=== PATIENT | female | born 1945 | race Caucasian/White ===

== ENCOUNTER 2020-10-14 04:36 | Inpatient (IN) ==
[2020-10-14] MEDS ORDERED: Dexamethasone 4 MG/ML VIAL IVP ONE (04:43)
[2020-10-14] MEDS ORDERED: Ipratropium/Albuterol Neb 3 ML IH ONE (04:43)
[2020-10-14] MEDS ORDERED: Azithromycin 500 MG in 0.9 % Sodium Chloride 250 ML IVPB ONE (04:46)
[2020-10-14] MEDS ORDERED: cefTRIAXone 1,000 MG in Water for inj. (sterile) 10 ML IVP ONE (04:46)
[2020-10-14 05:29] LABS: Basophils # 0.1 K/mcL (0.0-0.2); Basophils % 0.5 %; Eosinophils # 0.1 K/mcL (0.0-0.6); Eosinophils % 1.5 %; Hematocrit 38.2 % (35.3-44.9); Hemoglobin 11.7 g/dL (11.5-15.4); Immature Granulocytes % 0.5 % (0-4); Lymphocytes # 1.9 K/mcL (0.6-4.6); Lymphocytes % 20.5 %; Mean Corpuscular HGB Conc 30.6 g/dL (31.6-35.5); Mean Corpuscular Hemoglobin 30.5 pg (28.0-33.3); Mean Corpuscular Volume 99.7 fL (83.0-100.0); Mean Platelet Volume 8.7 fL (9.4-12.4); Monocytes # 0.8 K/mcL (0.0-1.3); Neutrophils # 6.5 K/mcL (1.6-8.9); Platelet Count 293 K/mcL (140-400); Prothrombin Time 11.3 Seconds (9.4-12.1); Red Blood Count 3.83 M/mcL (3.82-4.97); Red Cell Distribution Width 13.8 % (11.5-14.5); White Blood Count 9.4 K/mcL (4.3-11.1)
[2020-10-14 05:31] LABS: Activated Partial Thrombo Time 26.4 Seconds (26.0-36.0)
[2020-10-14 06:11] LABS: Alanine Aminotransferase 12 Units/L (7-52); Albumin 4.2 g/dL (3.5-5.7); Albumin/Globulin Ratio 1.5 (1.1-2.2); Alkaline Phosphatase 64 Units/L (34-104); Aspartate Amino Transferase 15 Units/L (13-39); BUN/Creatinine Ratio 38 (6-26); Bilirubin,Indirect 0.3 mg/dL (0.0-1.0); Bilirubin,Total 0.3 mg/dL (0.3-1.0); Blood Urea Nitrogen 18 mg/dL (8-23); Calcium 9.3 mg/dL (8.6-10.3); Carbon Dioxide 32 mEq/L (23-29); Chloride 101 mEq/L (98-107); Ferritin 36 ng/mL (10-120); Globulin 2.8 g/dL (2.4-3.5); Glucose 100 mg/dL (70-105); Lactate Dehydrogenase 131 Units/L (140-271); Magnesium 2.1 mg/dL (1.6-2.6); Osmolality,Calculated 294 (280-300); Phosphorous 4.2 mg/dL (2.7-4.5); Potassium 3.9 mEq/L (3.5-5.1); Sodium 141 mEq/L (136-145); Troponin I 0.05 ng/mL (< 0.04); eGFR For African Americans > 60 (> 60); eGFR For Non-African Americans > 60 (> 60)
[2020-10-14 06:14] LABS: Adenovirus Not Detected (Not Detect); Bordetella Pertussis Not Detected (Not Detect); Chlamydophila pneumoniae Not Detected (Not Detect); Coronavirus 229E Not Detected (Not Detect); Coronavirus HKU1 Not Detected (Not Detect); Coronavirus NL63 Not Detected (Not Detect); Coronavirus OC43 Not Detected (Not Detect); Human Metapneumovirus Not Detected (Not Detect); Human Rhinovirus/Enterovirus Not Detected (Not Detect); Influenza A Subtype 2009 H1 Not Detected (Not Detect); Influenza B Not Detected (Not Detect); Mycoplasma pneumoniae Not Detected (Not Detect); Parainfluenza Virus 1 Not Detected (Not Detect); Parainfluenza Virus 2 Not Detected (Not Detect); Parainfluenza Virus 3 Not Detected (Not Detect); Parainfluenza Virus 4 Not Detected (Not Detect); Respiratory Syncytial Virus Not Detected (Not Detect); SARS-CoV-2 Not Detected (Not Detect)
[2020-10-14] MEDS ORDERED: Naloxone 0.4 MG/ML INJ IVP PRN (06:57)
[2020-10-14 09:29] LABS: C-Reactive Protein 24 mg/L (Less than 10)
[2020-10-14] MEDS: methylPREDNISolone 125 MG/2 ML VIAL IVP SCH ×2 (09:45→15:21)
[2020-10-14] MEDS: Aspirin 81 MG TAB.CHEW PO SCH (09:45)
[2020-10-14] MEDS: Tiotropium 18 MCG inhalation IH SCH (11:28)
[2020-10-14] MEDS: Budesonide/Formoterol 160/4.5 1 PUFF INH IH SCH ×2 (11:28→21:53)
[2020-10-14] MEDS: *HR* Heparin 5,000 UNIT/ML VIAL SQ SCH (16:46)
[2020-10-14] MEDS: Ipratropium/Albuterol Neb 3 ML IH PRN (18:33)
[2020-10-15] MEDS: methylPREDNISolone 125 MG/2 ML VIAL IVP SCH ×3 (00:21→19:30)
[2020-10-15 04:26] LABS: Basophils % 0.2 %; Hematocrit 34.9 % (35.3-44.9); Hemoglobin 10.9 g/dL (11.5-15.4); Immature Granulocytes % 0.6 % (0-4); Lymphocytes # 0.7 K/mcL (0.6-4.6); Lymphocytes % 13.8 %; Mean Corpuscular HGB Conc 31.2 g/dL (31.6-35.5); Mean Corpuscular Hemoglobin 29.6 pg (28.0-33.3); Mean Corpuscular Volume 94.8 fL (83.0-100.0); Mean Platelet Volume 8.9 fL (9.4-12.4); Monocytes # 0.2 K/mcL (0.0-1.3); Neutrophils # 4.4 K/mcL (1.6-8.9); Platelet Count 282 K/mcL (140-400); Red Blood Count 3.68 M/mcL (3.82-4.97); Red Cell Distribution Width 13.5 % (11.5-14.5); Segmented Neutrophils % 82.4 %; White Blood Count 5.4 K/mcL (4.3-11.1)
[2020-10-15 04:40] LABS: BUN/Creatinine Ratio 67 (6-26); Blood Urea Nitrogen 31 mg/dL (8-23); Calcium 9.3 mg/dL (8.6-10.3); Carbon Dioxide 30 mEq/L (23-29); Chloride 102 mEq/L (98-107); Glucose 145 mg/dL (70-105); Osmolality,Calculated 297 (280-300); Potassium 4.3 mEq/L (3.5-5.1); Sodium 139 mEq/L (136-145); eGFR For African Americans > 60 (> 60); eGFR For Non-African Americans > 60 (> 60)
[2020-10-15] MEDS: *HR* Heparin 5,000 UNIT/ML VIAL SQ SCH ×2 (05:40→18:07)
[2020-10-15] MEDS: Budesonide/Formoterol 160/4.5 1 PUFF INH IH SCH ×2 (08:09→20:36)
[2020-10-15] MEDS: Tiotropium 18 MCG inhalation IH SCH ×2 (08:10→16:07)
[2020-10-15] MEDS: Ipratropium/Albuterol Neb 3 ML IH PRN ×2 (08:12→12:34)
[2020-10-15] MEDS: Aspirin 81 MG TAB.CHEW PO SCH (08:29)
[2020-10-15] MEDS ORDERED: ALPRAZolam 0.25 MG TABLET PO PRN (10:50)
[2020-10-15] MEDS: Albuterol 2.5 MG/3 ML NEBULIZER IH PRN (16:47)
[2020-10-16] MEDS: *HR* Heparin 5,000 UNIT/ML VIAL SQ SCH ×2 (05:52→16:49)
[2020-10-16] MEDS: Aspirin 81 MG TAB.CHEW PO SCH (07:26)
[2020-10-16] MEDS: methylPREDNISolone 125 MG/2 ML VIAL IVP SCH ×2 (07:27→19:53)
[2020-10-16 07:53] LABS: Basophils % 0.1 %; Hematocrit 36.2 % (35.3-44.9); Hemoglobin 11.1 g/dL (11.5-15.4); Immature Granulocytes % 0.5 % (0-4); Lymphocytes # 1.1 K/mcL (0.6-4.6); Lymphocytes % 13.5 %; Mean Corpuscular HGB Conc 30.7 g/dL (31.6-35.5); Mean Corpuscular Hemoglobin 29.5 pg (28.0-33.3); Mean Corpuscular Volume 96.3 fL (83.0-100.0); Mean Platelet Volume 9.3 fL (9.4-12.4); Monocytes # 0.6 K/mcL (0.0-1.3); Neutrophils # 6.2 K/mcL (1.6-8.9); Platelet Count 330 K/mcL (140-400); Red Blood Count 3.76 M/mcL (3.82-4.97); Red Cell Distribution Width 13.8 % (11.5-14.5); Segmented Neutrophils % 77.9 %
[2020-10-16 07:54] LABS: BUN/Creatinine Ratio 85 (6-26); Blood Urea Nitrogen 39 mg/dL (8-23); Calcium 9.4 mg/dL (8.6-10.3); Carbon Dioxide 33 mEq/L (23-29); Chloride 102 mEq/L (98-107); Glucose 117 mg/dL (70-105); Magnesium 2.1 mg/dL (1.6-2.6); Osmolality,Calculated 302 (280-300); Phosphorous 4.2 mg/dL (2.7-4.5); Potassium 4.1 mEq/L (3.5-5.1); Sodium 141 mEq/L (136-145); eGFR For African Americans > 60 (> 60); eGFR For Non-African Americans > 60 (> 60)
[2020-10-16] MEDS: Tiotropium 18 MCG inhalation IH SCH (08:41)
[2020-10-16] MEDS: Budesonide/Formoterol 160/4.5 1 PUFF INH IH SCH ×2 (08:42→22:13)
[2020-10-16] MEDS: Albuterol 2.5 MG/3 ML NEBULIZER IH PRN ×3 (11:10→19:50)
[2020-10-17] MEDS: *HR* Heparin 5,000 UNIT/ML VIAL SQ SCH (05:20)
[2020-10-17] MEDS: Tiotropium 18 MCG inhalation IH SCH (08:16)
[2020-10-17] MEDS: Budesonide/Formoterol 160/4.5 1 PUFF INH IH SCH (08:17)
[2020-10-17] MEDS: Aspirin 81 MG TAB.CHEW PO SCH (08:51)
[2020-10-17] MEDS ORDERED: predniSONE 20 MG TABLET PO SCH (09:00)
[2020-10-17 11:45] VITALS: BP 125/65
== END 2020-10-17 13:07 | disposition home health service (06) | DRG 190 ==
LOC: EMEROOARM 04:36 → 3BNU 04:36 → SUATTDRO 07:54 → 3BNU 08:46
PROVIDERS: ADMIT Internal Medicine; ATTEND Internal Medicine

== ENCOUNTER 2020-10-31 01:32 | Inpatient (IN) ==
[2020-10-31] MEDS ORDERED: Ipratropium/Albuterol Neb 3 ML IH ONE (01:35)
[2020-10-31 02:03] LABS: Basophils # 0.1 K/mcL (0.0-0.2); Basophils % 0.6 %; Eosinophils # 0.1 K/mcL (0.0-0.6); Eosinophils % 0.5 %; Hematocrit 36.4 % (35.3-44.9); Hemoglobin 10.9 g/dL (11.5-15.4); Immature Granulocytes % 0.6 % (0-4); Lymphocytes # 5.2 K/mcL (0.6-4.6); Lymphocytes % 31.2 %; Mean Corpuscular HGB Conc 29.9 g/dL (31.6-35.5); Mean Corpuscular Hemoglobin 29.8 pg (28.0-33.3); Mean Corpuscular Volume 99.5 fL (83.0-100.0); Mean Platelet Volume 8.7 fL (9.4-12.4); Monocytes # 1.2 K/mcL (0.0-1.3); Monocytes % 7.3 %; Platelet Count 312 K/mcL (140-400); Prothrombin Time 11.8 Seconds (9.4-12.1); Red Blood Count 3.66 M/mcL (3.82-4.97); Red Cell Distribution Width 13.8 % (11.5-14.5); Segmented Neutrophils % 59.8 %; White Blood Count 16.6 K/mcL (4.3-11.1)
[2020-10-31 02:06] LABS: Activated Partial Thrombo Time 24.9 Seconds (26.0-36.0)
[2020-10-31 02:20] LABS: BUN/Creatinine Ratio 36 (6-26); Blood Urea Nitrogen 20 mg/dL (8-23); Calcium 9.5 mg/dL (8.6-10.3); Carbon Dioxide 29 mEq/L (23-29); Chloride 100 mEq/L (98-107); Glucose 206 mg/dL (70-105); Osmolality,Calculated 297 (280-300); Potassium 4.2 mEq/L (3.5-5.1); Sodium 139 mEq/L (136-145); Troponin I < 0.03 ng/mL (< 0.04); eGFR For African Americans > 60 (> 60); eGFR For Non-African Americans > 60 (> 60)
[2020-10-31] MEDS ORDERED: Azithromycin 250 MG TABLET PO ONE (02:57)
[2020-10-31 03:07] LABS: Influenza A PCR Negative (Negative); Influenza B PCR Negative (Negative); Resp. Syncytial Virus PCR Negative (Negative)
[2020-10-31 03:08] LABS: SARS-CoV-2 by PCR (In House) Negative (Negative)
[2020-10-31] MEDS ORDERED: Azithromycin 500 MG in 0.9 % Sodium Chloride 250 ML IVPB ONE (03:37)
[2020-10-31] MEDS ORDERED: Ondansetron ODT 4 MG TAB.RAPDIS SL PRN (05:13)
[2020-10-31] MEDS ORDERED: Acetaminophen 325 MG TABLET PO PRN (05:13)
[2020-10-31] MEDS ORDERED: Naloxone 0.4 MG/ML INJ IVP PRN (05:13)
[2020-10-31] MEDS ORDERED: Dextrose Gel 15 GM/37.5 ML TUBE PO PRN ×2 (05:16)
[2020-10-31] MEDS ORDERED: D5% in Water 1,000 ML IVC PRN (05:16)
[2020-10-31] MEDS ORDERED: *HR* Dextrose 50 % in Water (Vial) 50 ML VIAL IVP PRN (05:16)
[2020-10-31] MEDS: Insulin LISPRO 300 UNITS/3 ML VIAL SUBQ SCH ×5 (06:49→21:38)
[2020-10-31] MEDS: 0.9 % Sodium Chloride 1,000 ML IVC SCH ×2 (07:17→20:03)
[2020-10-31 08:24] LABS: Estimated Average Glucose 146 mg/dl; Hemoglobin A1C 6.7 %
[2020-10-31] MEDS: *HR* Enoxaparin 30 MG/0.3 ML SYRINGE SQ SCH (08:24)
[2020-10-31] MEDS: methylPREDNISolone 125 MG/2 ML VIAL IVP SCH ×3 (08:24→23:53)
[2020-10-31] MEDS ORDERED: Budesonide/Formoterol 160/4.5 1 PUFF INH IH SCH (10:45)
[2020-10-31] MEDS: Aspirin 81 MG TAB.CHEW PO SCH (12:51)
[2020-10-31] MEDS: Tiotropium 10 INH DOSE IH SCH ×2 (15:29→19:51)
[2020-10-31] MEDS: Ipratropium/Albuterol Neb 3 ML IH SCH ×5 (15:30→23:06)
[2020-10-31] MEDS: Azithromycin 500 MG in 0.9 % Sodium Chloride 250 ML IVPB SCH (20:03)
[2020-10-31] MEDS: Budesonide/Formoterol 160/4.5 1 PUFF INH IH SCH ×2 (20:10→20:16)
[2020-11-01 03:49] LABS: Basophils % 0.2 %; Hematocrit 29.4 % (35.3-44.9); Immature Granulocytes % 0.4 % (0-4); Lymphocytes # 0.3 K/mcL (0.6-4.6); Lymphocytes % 6.3 %; Mean Corpuscular HGB Conc 30.6 g/dL (31.6-35.5); Mean Corpuscular Hemoglobin 30.3 pg (28.0-33.3); Monocytes # 0.2 K/mcL (0.0-1.3); Monocytes % 3.4 %; Neutrophils # 4.3 K/mcL (1.6-8.9); Platelet Count 246 K/mcL (140-400); Red Blood Count 2.97 M/mcL (3.82-4.97); Red Cell Distribution Width 13.6 % (11.5-14.5); Segmented Neutrophils % 89.7 %
[2020-11-01] MEDS: Ipratropium/Albuterol Neb 3 ML IH SCH ×4 (03:49→15:54)
[2020-11-01 03:50] LABS: White Blood Count 4.8 K/mcL (4.3-11.1)
[2020-11-01 04:07] LABS: BUN/Creatinine Ratio 85 (6-26); Blood Urea Nitrogen 29 mg/dL (8-23); Calcium 8.2 mg/dL (8.6-10.3); Carbon Dioxide 30 mEq/L (23-29); Chloride 105 mEq/L (98-107); Glucose 140 mg/dL (70-105); Magnesium 2.1 mg/dL (1.6-2.6); Osmolality,Calculated 298 (280-300); Phosphorous 2.5 mg/dL (2.7-4.5); Potassium 4.2 mEq/L (3.5-5.1); Sodium 140 mEq/L (136-145); eGFR For African Americans > 60 (> 60); eGFR For Non-African Americans > 60 (> 60)
[2020-11-01] MEDS: *HR* Enoxaparin 30 MG/0.3 ML SYRINGE SQ SCH (06:15)
[2020-11-01 08:08] LABS: % Iron Saturation 15 % (15-50); Iron 36 mcg/dL (50-170); Transferrin 169 mg/dL (203-362)
[2020-11-01 08:26] LABS: Ferritin 123 ng/mL (10-120)
[2020-11-01] MEDS: methylPREDNISolone 125 MG/2 ML VIAL IVP SCH (09:46)
[2020-11-01] MEDS: Aspirin 81 MG TAB.CHEW PO SCH (09:46)
[2020-11-01] MEDS: Insulin LISPRO 300 UNITS/3 ML VIAL SUBQ SCH ×4 (09:47→20:35)
[2020-11-01] MEDS: Budesonide/Formoterol 160/4.5 1 PUFF INH IH SCH ×2 (10:17→20:42)
[2020-11-01] MEDS: Tiotropium 10 INH DOSE IH SCH (10:18)
[2020-11-01] MEDS: Azithromycin 500 MG in 0.9 % Sodium Chloride 250 ML IVPB SCH (17:10)
[2020-11-01] MEDS: Albuterol 2.5 MG/3 ML NEBULIZER IH SCH (20:42)
[2020-11-02] MEDS: Albuterol 2.5 MG/3 ML NEBULIZER IH SCH ×7 (00:02→23:52)
[2020-11-02 05:05] LABS: Basophils % 0.1 %; Eosinophils % 0.1 %; Hematocrit 29.4 % (35.3-44.9); Hemoglobin 9.2 g/dL (11.5-15.4); Immature Granulocytes % 0.4 % (0-4); Lymphocytes # 1.3 K/mcL (0.6-4.6); Lymphocytes % 19.2 %; Mean Corpuscular HGB Conc 31.3 g/dL (31.6-35.5); Mean Platelet Volume 8.6 fL (9.4-12.4); Monocytes # 0.7 K/mcL (0.0-1.3); Monocytes % 9.5 %; Neutrophils # 4.8 K/mcL (1.6-8.9); Platelet Count 263 K/mcL (140-400); Red Blood Count 2.97 M/mcL (3.82-4.97); Red Cell Distribution Width 13.7 % (11.5-14.5); Segmented Neutrophils % 70.7 %; White Blood Count 6.9 K/mcL (4.3-11.1)
[2020-11-02 05:21] LABS: BUN/Creatinine Ratio 69 (6-26); Blood Urea Nitrogen 27 mg/dL (8-23); Calcium 8.4 mg/dL (8.6-10.3); Carbon Dioxide 32 mEq/L (23-29); Chloride 106 mEq/L (98-107); Glucose 95 mg/dL (70-105); Osmolality,Calculated 301 (280-300); Potassium 3.6 mEq/L (3.5-5.1); Sodium 143 mEq/L (136-145); eGFR For African Americans > 60 (> 60); eGFR For Non-African Americans > 60 (> 60)
[2020-11-02] MEDS: Insulin LISPRO 300 UNITS/3 ML VIAL SUBQ SCH ×4 (07:34→20:07)
[2020-11-02] MEDS: Aspirin 81 MG TAB.CHEW PO SCH (07:34)
[2020-11-02] MEDS: predniSONE 20 MG TABLET PO SCH (07:34)
[2020-11-02] MEDS: Budesonide/Formoterol 160/4.5 1 PUFF INH IH SCH ×2 (08:35→19:54)
[2020-11-02] MEDS: Tiotropium 10 INH DOSE IH SCH (08:35)
[2020-11-02] MEDS: Azithromycin 500 MG in 0.9 % Sodium Chloride 250 ML IVPB SCH (16:49)
[2020-11-03] MEDS: Albuterol 2.5 MG/3 ML NEBULIZER IH SCH ×6 (03:27→23:25)
[2020-11-03 05:42] LABS: Basophils % 0.2 %; Eosinophils # 0.1 K/mcL (0.0-0.6); Eosinophils % 0.8 %; Hematocrit 32.2 % (35.3-44.9); Hemoglobin 9.9 g/dL (11.5-15.4); Immature Granulocytes % 0.5 % (0-4); Lymphocytes # 1.9 K/mcL (0.6-4.6); Lymphocytes % 30.6 %; Mean Corpuscular HGB Conc 30.7 g/dL (31.6-35.5); Mean Corpuscular Hemoglobin 30.6 pg (28.0-33.3); Mean Corpuscular Volume 99.4 fL (83.0-100.0); Mean Platelet Volume 8.8 fL (9.4-12.4); Monocytes # 0.6 K/mcL (0.0-1.3); Neutrophils # 3.6 K/mcL (1.6-8.9); Platelet Count 294 K/mcL (140-400); Red Blood Count 3.24 M/mcL (3.82-4.97); Red Cell Distribution Width 13.7 % (11.5-14.5); Segmented Neutrophils % 58.9 %; White Blood Count 6.1 K/mcL (4.3-11.1)
[2020-11-03 06:03] LABS: BUN/Creatinine Ratio 36 (6-26); Blood Urea Nitrogen 14 mg/dL (8-23); Calcium 8.6 mg/dL (8.6-10.3); Carbon Dioxide 35 mEq/L (23-29); Chloride 102 mEq/L (98-107); Glucose 83 mg/dL (70-105); Osmolality,Calculated 292 (280-300); Potassium 3.6 mEq/L (3.5-5.1); Sodium 141 mEq/L (136-145); eGFR For African Americans > 60 (> 60); eGFR For Non-African Americans > 60 (> 60)
[2020-11-03] MEDS: Aspirin 81 MG TAB.CHEW PO SCH (08:09)
[2020-11-03] MEDS: predniSONE 20 MG TABLET PO SCH (08:09)
[2020-11-03] MEDS: Insulin LISPRO 300 UNITS/3 ML VIAL SUBQ SCH ×4 (08:10→19:11)
[2020-11-03] MEDS: Tiotropium 10 INH DOSE IH SCH (09:33)
[2020-11-03] MEDS: Budesonide/Formoterol 160/4.5 1 PUFF INH IH SCH ×2 (09:35→20:09)
[2020-11-03] MEDS: Azithromycin 500 MG in 0.9 % Sodium Chloride 250 ML IVPB SCH (16:47)
[2020-11-04] MEDS: Albuterol 2.5 MG/3 ML NEBULIZER IH SCH ×6 (03:56→23:01)
[2020-11-04 04:56] LABS: Basophils % 0.1 %; Eosinophils # 0.1 K/mcL (0.0-0.6); Eosinophils % 1.2 %; Hematocrit 33.3 % (35.3-44.9); Hemoglobin 10.3 g/dL (11.5-15.4); Immature Granulocytes % 0.6 % (0-4); Lymphocytes % 28.7 %; Mean Corpuscular HGB Conc 30.9 g/dL (31.6-35.5); Mean Corpuscular Hemoglobin 29.5 pg (28.0-33.3); Mean Corpuscular Volume 95.4 fL (83.0-100.0); Mean Platelet Volume 8.4 fL (9.4-12.4); Monocytes # 0.6 K/mcL (0.0-1.3); Monocytes % 8.5 %; Neutrophils # 4.1 K/mcL (1.6-8.9); Platelet Count 309 K/mcL (140-400); Red Blood Count 3.49 M/mcL (3.82-4.97); Red Cell Distribution Width 13.5 % (11.5-14.5); Segmented Neutrophils % 60.9 %; White Blood Count 6.8 K/mcL (4.3-11.1)
[2020-11-04 05:14] LABS: BUN/Creatinine Ratio 41 (6-26); Blood Urea Nitrogen 15 mg/dL (8-23); Calcium 8.6 mg/dL (8.6-10.3); Carbon Dioxide 36 mEq/L (23-29); Chloride 102 mEq/L (98-107); Glucose 88 mg/dL (70-105); Osmolality,Calculated 292 (280-300); Potassium 3.7 mEq/L (3.5-5.1); Sodium 141 mEq/L (136-145); eGFR For African Americans > 60 (> 60); eGFR For Non-African Americans > 60 (> 60)
[2020-11-04] MEDS: Budesonide/Formoterol 160/4.5 1 PUFF INH IH SCH ×2 (08:33→19:43)
[2020-11-04] MEDS: Insulin LISPRO 300 UNITS/3 ML VIAL SUBQ SCH ×4 (08:34→20:42)
[2020-11-04] MEDS: Tiotropium 10 INH DOSE IH SCH (08:34)
[2020-11-04] MEDS: Aspirin 81 MG TAB.CHEW PO SCH (08:53)
[2020-11-04] MEDS: predniSONE 20 MG TABLET PO SCH (08:53)
[2020-11-04] MEDS: Azithromycin 500 MG in 0.9 % Sodium Chloride 250 ML IVPB SCH (18:12)
[2020-11-05] MEDS: Albuterol 2.5 MG/3 ML NEBULIZER IH SCH ×6 (03:21→23:58)
[2020-11-05 06:09] LABS: Basophils % 0.1 %; Eosinophils # 0.1 K/mcL (0.0-0.6); Hemoglobin 9.9 g/dL (11.5-15.4); Immature Granulocytes % 0.9 % (0-4); Lymphocytes % 29.2 %; Mean Corpuscular HGB Conc 30.9 g/dL (31.6-35.5); Mean Corpuscular Hemoglobin 29.7 pg (28.0-33.3); Mean Corpuscular Volume 96.1 fL (83.0-100.0); Mean Platelet Volume 8.9 fL (9.4-12.4); Monocytes # 0.6 K/mcL (0.0-1.3); Neutrophils # 4.2 K/mcL (1.6-8.9); Platelet Count 338 K/mcL (140-400); Red Blood Count 3.33 M/mcL (3.82-4.97); Red Cell Distribution Width 13.6 % (11.5-14.5); Segmented Neutrophils % 60.8 %
[2020-11-05 06:29] LABS: BUN/Creatinine Ratio 51 (6-26); Blood Urea Nitrogen 23 mg/dL (8-23); Carbon Dioxide 34 mEq/L (23-29); Chloride 99 mEq/L (98-107); Glucose 87 mg/dL (70-105); Osmolality,Calculated 291 (280-300); Potassium 3.8 mEq/L (3.5-5.1); Sodium 139 mEq/L (136-145); eGFR For African Americans > 60 (> 60); eGFR For Non-African Americans > 60 (> 60)
[2020-11-05] MEDS: Budesonide/Formoterol 160/4.5 1 PUFF INH IH SCH ×2 (08:11→20:06)
[2020-11-05] MEDS: Tiotropium 10 INH DOSE IH SCH (08:14)
[2020-11-05] MEDS: predniSONE 20 MG TABLET PO SCH (08:39)
[2020-11-05] MEDS: Aspirin 81 MG TAB.CHEW PO SCH (08:39)
[2020-11-05] MEDS: Insulin LISPRO 300 UNITS/3 ML VIAL SUBQ SCH ×3 (08:45→16:10)
[2020-11-05] MEDS: Azithromycin 500 MG in 0.9 % Sodium Chloride 250 ML IVPB SCH (17:40)
[2020-11-06] MEDS: Albuterol 2.5 MG/3 ML NEBULIZER IH SCH ×3 (04:05→11:10)
[2020-11-06 06:12] LABS: Basophils % 0.3 %; Eosinophils # 0.1 K/mcL (0.0-0.6); Eosinophils % 1.3 %; Hematocrit 33.9 % (35.3-44.9); Hemoglobin 10.4 g/dL (11.5-15.4); Immature Granulocytes % 1.3 % (0-4); Lymphocytes # 2.3 K/mcL (0.6-4.6); Lymphocytes % 29.5 %; Mean Corpuscular HGB Conc 30.7 g/dL (31.6-35.5); Mean Corpuscular Hemoglobin 30.1 pg (28.0-33.3); Mean Platelet Volume 8.6 fL (9.4-12.4); Monocytes # 0.6 K/mcL (0.0-1.3); Monocytes % 7.2 %; Neutrophils # 4.7 K/mcL (1.6-8.9); Platelet Count 381 K/mcL (140-400); Red Blood Count 3.46 M/mcL (3.82-4.97); Segmented Neutrophils % 60.4 %; White Blood Count 7.7 K/mcL (4.3-11.1)
[2020-11-06 06:34] LABS: BUN/Creatinine Ratio 45 (6-26); Blood Urea Nitrogen 19 mg/dL (8-23); Calcium 8.9 mg/dL (8.6-10.3); Carbon Dioxide 36 mEq/L (23-29); Chloride 100 mEq/L (98-107); Glucose 90 mg/dL (70-105); Osmolality,Calculated 294 (280-300); Potassium 3.8 mEq/L (3.5-5.1); Sodium 141 mEq/L (136-145); eGFR For African Americans > 60 (> 60); eGFR For Non-African Americans > 60 (> 60)
[2020-11-06] MEDS: Insulin LISPRO 300 UNITS/3 ML VIAL SUBQ SCH ×2 (07:11→08:23)
[2020-11-06 07:22] VITALS: BP 100/62
[2020-11-06] MEDS: Budesonide/Formoterol 160/4.5 1 PUFF INH IH SCH (08:08)
[2020-11-06] MEDS: Tiotropium 10 INH DOSE IH SCH (08:08)
[2020-11-06] MEDS: Aspirin 81 MG TAB.CHEW PO SCH (08:25)
[2020-11-06] MEDS: predniSONE 20 MG TABLET PO SCH (08:26)
== END 2020-11-06 14:12 | disposition home health service (06) | DRG 871 ==
LOC: CDU 01:32 → EMEROOARM 01:32 → CDU 06:57 → 3BNU 19:05
PROVIDERS: ADMIT Internal Medicine; ATTEND Internal Medicine

== ENCOUNTER 2021-03-02 12:03 | Inpatient (IN) ==
[2021-03-02 12:36] LABS: Basophils # 0.1 K/mcL (0.0-0.2); Basophils % 0.6 %; Eosinophils % 0.3 %; Hematocrit 37.4 % (35.3-44.9); Hemoglobin 11.7 g/dL (11.5-15.4); Lymphocytes # 1.1 K/mcL (0.6-4.6); Lymphocytes % 8.2 %; Mean Corpuscular HGB Conc 31.3 g/dL (31.6-35.5); Mean Corpuscular Hemoglobin 30.2 pg (28.0-33.3); Mean Corpuscular Volume 96.4 fL (83.0-100.0); Mean Platelet Volume 8.3 fL (9.4-12.4); Monocytes # 0.4 K/mcL (0.0-1.3); Monocytes % 3.1 %; Neutrophils # 11.7 K/mcL (1.6-8.9); Platelet Count 346 K/mcL (140-400); Red Blood Count 3.88 M/mcL (3.82-4.97); Red Cell Distribution Width 13.4 % (11.5-14.5); Segmented Neutrophils % 86.8 %; White Blood Count 13.5 K/mcL (4.3-11.1)
[2021-03-02 12:58] LABS: BUN/Creatinine Ratio 55 (6-26); Blood Urea Nitrogen 27 mg/dL (8-23); Calcium 9.2 mg/dL (8.6-10.3); Carbon Dioxide 28 mEq/L (23-29); Chloride 99 mEq/L (98-107); Glucose 120 mg/dL (70-105); Osmolality,Calculated 290 (280-300); Sodium 137 mEq/L (136-145); eGFR For African Americans > 60 (> 60); eGFR For Non-African Americans > 60 (> 60)
[2021-03-02 12:59] LABS: Troponin I 0.03 ng/mL (< 0.04)
[2021-03-02 13:44] LABS: Adenovirus Not Detected (Not Detect); Bordetella Pertussis Not Detected (Not Detect); Chlamydophila pneumoniae Not Detected (Not Detect); Coronavirus 229E Not Detected (Not Detect); Coronavirus HKU1 Not Detected (Not Detect); Coronavirus NL63 Not Detected (Not Detect); Coronavirus OC43 Not Detected (Not Detect); Human Metapneumovirus Not Detected (Not Detect); Human Rhinovirus/Enterovirus Not Detected (Not Detect); Influenza A Subtype 2009 H1 Not Detected (Not Detect); Influenza B Not Detected (Not Detect); Mycoplasma pneumoniae Not Detected (Not Detect); Parainfluenza Virus 1 Not Detected (Not Detect); Parainfluenza Virus 2 Not Detected (Not Detect); Parainfluenza Virus 3 Not Detected (Not Detect); Parainfluenza Virus 4 Not Detected (Not Detect); Respiratory Syncytial Virus Not Detected (Not Detect); SARS-CoV-2 Not Detected (Not Detect)
[2021-03-02] MEDS ORDERED: Ipratropium/Albuterol Neb 3 ML IH ONE (13:45)
[2021-03-02] MEDS ORDERED: Isovue-370 500 ML BOTTLE IVP ONE (13:47)
[2021-03-02 14:48] LABS: Bilirubin,Urine Negative (Negative); Blood,Urine Small (Negative); Clarity,Urine Clear (Clear); Color,Urine Colorless (Yellow); Glucose,Urine (UA) Normal (Normal); Ketones,Urine Trace mg/dL (Negative); Leukocyte Esterase,Urine Negative (Negative); Nitrite,Urine Negative (Negative); Protein,Urine Negative (Neg-Trace); Specific Gravity,Urine 1.024 (1.010-1.025); Urobilinogen,Urine Normal (Normal); WBC,Urine 0-3 per hpf (0-3)
[2021-03-02] MEDS ORDERED: Azithromycin 500 MG in 0.9 % Sodium Chloride 250 ML IVPB ONE (16:08)
[2021-03-02] MEDS ORDERED: cefTRIAXone 1,000 MG in Water for inj. (sterile) 10 ML IVP ONE (16:08)
[2021-03-02] MEDS ORDERED: Ringers Solution, Lactated 1,000 ML IVC ONE (16:56)
[2021-03-02] MEDS ORDERED: Levalbuterol Neb 0.63 MG/3 ML IH PRN (16:58)
[2021-03-02] MEDS ORDERED: Naloxone 0.4 MG/ML INJ IVP PRN (16:59)
[2021-03-02] MEDS ORDERED: Acetaminophen 325 MG TABLET PO PRN (16:59)
[2021-03-02] MEDS ORDERED: Melatonin 3 MG TABLET PO PRN (16:59)
[2021-03-02] MEDS ORDERED: Ringers Solution, Lactated 1,000 ML IVC SCH (18:00)
[2021-03-02] MEDS: Piperacillin/Tazobactam 3.375 GM in 0.9 % Sodium Chloride Mini Bag 100 ML IVPB SCH (18:41)
[2021-03-02] MEDS: Ondansetron 4 MG/2 ML VIAL IVP PRN (18:41)
[2021-03-02] MEDS: predniSONE 20 MG TABLET PO SCH (18:41)
[2021-03-02] MEDS ORDERED: 0.9 % Sodium Chloride 1,000 ML IV ONE (18:59)
[2021-03-02] MEDS: Levalbuterol Neb 0.63 MG/3 ML IH SCH (22:06)
[2021-03-02] MEDS: Budesonide/Formoterol 160/4.5 1 PUFF INH IH SCH (22:35)
[2021-03-02] MEDS: 0.9 % Sodium Chloride 1,000 ML IVC SCH (22:41)
[2021-03-03] MEDS: Piperacillin/Tazobactam 3.375 GM in 0.9 % Sodium Chloride Mini Bag 100 ML IVPB SCH ×3 (01:23→21:10)
[2021-03-03] MEDS: Levalbuterol Neb 0.63 MG/3 ML IH SCH ×4 (04:08→22:29)
[2021-03-03 05:39] LABS: Basophils % 0.1 %; Hematocrit 35.9 % (35.3-44.9); Hemoglobin 11.2 g/dL (11.5-15.4); Immature Granulocytes % 1.2 % (0-4); Lymphocytes % 12.5 %; Mean Corpuscular HGB Conc 31.2 g/dL (31.6-35.5); Mean Corpuscular Hemoglobin 30.7 pg (28.0-33.3); Mean Corpuscular Volume 98.4 fL (83.0-100.0); Mean Platelet Volume 8.2 fL (9.4-12.4); Monocytes # 0.2 K/mcL (0.0-1.3); Monocytes % 2.3 %; Neutrophils # 6.5 K/mcL (1.6-8.9); Platelet Count 319 K/mcL (140-400); Red Blood Count 3.65 M/mcL (3.82-4.97); Red Cell Distribution Width 13.3 % (11.5-14.5); Segmented Neutrophils % 83.9 %; White Blood Count 7.8 K/mcL (4.3-11.1)
[2021-03-03 05:48] LABS: Prothrombin Time 11.3 Seconds (9.4-12.1)
[2021-03-03 06:03] LABS: BUN/Creatinine Ratio 42 (6-26); Blood Urea Nitrogen 20 mg/dL (8-23); Calcium 8.8 mg/dL (8.6-10.3); Carbon Dioxide 31 mEq/L (23-29); Chloride 102 mEq/L (98-107); Glucose 147 mg/dL (70-105); Magnesium 2.1 mg/dL (1.6-2.6); Osmolality,Calculated 293 (280-300); Phosphorous 3.5 mg/dL (2.7-4.5); Potassium 4.5 mEq/L (3.5-5.1); Sodium 139 mEq/L (136-145); eGFR For African Americans > 60 (> 60); eGFR For Non-African Americans > 60 (> 60)
[2021-03-03 06:17] LABS: Thyroid Stimulating Hormone 0.248 mcIU/mL (0.340-5.600)
[2021-03-03 08:53] LABS: Triiodothyronine (T3) Free 3.17 pg/mL (2.50-3.90)
[2021-03-03] MEDS: predniSONE 20 MG TABLET PO SCH (10:14)
[2021-03-03] MEDS: Aspirin 81 MG TAB.CHEW PO SCH (10:14)
[2021-03-03] MEDS ORDERED: *HR* LORazepam 2 MG/ML VIAL IVP PRN (10:31)
[2021-03-03] MEDS: Tiotropium 10 INH DOSE IH SCH (10:40)
[2021-03-03] MEDS: Budesonide/Formoterol 160/4.5 1 PUFF INH IH SCH ×2 (10:40→22:29)
[2021-03-03] MEDS ORDERED: Albuterol 2.5 MG/3 ML NEBULIZER IH PRN (12:31)
[2021-03-03] MEDS ORDERED: *HR* Propofol 200 MG/20 ML VIAL IVP ONE (12:32)
[2021-03-03] MEDS ORDERED: *HR* FentaNYL (PF) 100 MCG/2 ML VIAL ONE (12:32)
[2021-03-03] MEDS ORDERED: Lidocaine -MPF 2% 2 ML VIAL ONE (12:47)
[2021-03-03] MEDS ORDERED: *HR* Succinylcholine 200 MG/10 ML VIAL IVP ONE (12:47)
[2021-03-03] MEDS ORDERED: Ondansetron 4 MG/2 ML VIAL ONE (12:47)
[2021-03-03] MEDS ORDERED: *HR* EPINEPHrine 1 MG/10 ML SYRINGE INTRATRACH PRN (13:10)
[2021-03-03] MEDS ORDERED: *HR* EPINEPHrine 1 MG/10 ML SYRINGE ONE (14:10)
[2021-03-03] MEDS: 0.9 % Sodium Chloride 1,000 ML IVC SCH (14:20)
[2021-03-03 16:09] LABS: Appearance of Body Fluid Slightly Hazy (Clear); Source of Body Fluid RIGHT UPPER LOBE LUN; Volume of Body Fluid 21 mL
[2021-03-03] MEDS: Azithromycin 500 MG in 0.9 % Sodium Chloride 250 ML IVPB SCH (17:27)
[2021-03-03] MEDS: Ondansetron 4 MG/2 ML VIAL IVP PRN (18:11)
[2021-03-04] MEDS: Levalbuterol Neb 0.63 MG/3 ML IH SCH ×4 (04:06→22:56)
[2021-03-04 05:02] LABS: Basophils % 0.2 %; Eosinophils % 0.1 %; Hematocrit 30.8 % (35.3-44.9); Hemoglobin 9.6 g/dL (11.5-15.4); Immature Granulocytes % 0.7 % (0-4); Lymphocytes # 1.6 K/mcL (0.6-4.6); Mean Corpuscular HGB Conc 31.2 g/dL (31.6-35.5); Mean Corpuscular Hemoglobin 30.3 pg (28.0-33.3); Mean Corpuscular Volume 97.2 fL (83.0-100.0); Mean Platelet Volume 8.2 fL (9.4-12.4); Monocytes # 0.9 K/mcL (0.0-1.3); Monocytes % 9.4 %; Platelet Count 276 K/mcL (140-400); Red Blood Count 3.17 M/mcL (3.82-4.97); Red Cell Distribution Width 13.6 % (11.5-14.5); Segmented Neutrophils % 72.6 %; White Blood Count 9.6 K/mcL (4.3-11.1)
[2021-03-04 05:23] LABS: BUN/Creatinine Ratio 48 (6-26); Blood Urea Nitrogen 21 mg/dL (8-23); Calcium 7.9 mg/dL (8.6-10.3); Carbon Dioxide 28 mEq/L (23-29); Chloride 107 mEq/L (98-107); Glucose 102 mg/dL (70-105); Magnesium 2.1 mg/dL (1.6-2.6); Osmolality,Calculated 295 (280-300); Phosphorous 2.7 mg/dL (2.7-4.5); Potassium 3.9 mEq/L (3.5-5.1); Sodium 141 mEq/L (136-145); eGFR For African Americans > 60 (> 60); eGFR For Non-African Americans > 60 (> 60)
[2021-03-04] MEDS: 0.9 % Sodium Chloride 1,000 ML IVC SCH ×2 (06:09→10:30)
[2021-03-04] MEDS: Piperacillin/Tazobactam 3.375 GM in 0.9 % Sodium Chloride Mini Bag 100 ML IVPB SCH ×4 (06:10→21:52)
[2021-03-04 08:26] LABS: Hematocrit 32.7 % (35.3-44.9); Hemoglobin 10.2 g/dL (11.5-15.4)
[2021-03-04] MEDS: predniSONE 20 MG TABLET PO SCH (08:33)
[2021-03-04] MEDS: Aspirin 81 MG TAB.CHEW PO SCH (08:33)
[2021-03-04] MEDS: Budesonide/Formoterol 160/4.5 1 PUFF INH IH SCH ×2 (10:18→22:56)
[2021-03-04] MEDS: Tiotropium 10 INH DOSE IH SCH (10:18)
[2021-03-04] MEDS: Azithromycin 500 MG in 0.9 % Sodium Chloride 250 ML IVPB SCH (17:22)
[2021-03-04] MEDS: Ondansetron 4 MG/2 ML VIAL IVP PRN (18:26)
[2021-03-05] MEDS: Levalbuterol Neb 0.63 MG/3 ML IH SCH ×4 (04:30→22:36)
[2021-03-05 05:17] LABS: Basophils % 0.4 %; Eosinophils # 0.1 K/mcL (0.0-0.6); Eosinophils % 0.5 %; Hematocrit 33.5 % (35.3-44.9); Hemoglobin 10.3 g/dL (11.5-15.4); Immature Granulocytes % 1.1 % (0-4); Lymphocytes # 2.5 K/mcL (0.6-4.6); Lymphocytes % 23.6 %; Mean Corpuscular HGB Conc 30.7 g/dL (31.6-35.5); Mean Corpuscular Hemoglobin 30.2 pg (28.0-33.3); Mean Corpuscular Volume 98.2 fL (83.0-100.0); Mean Platelet Volume 8.2 fL (9.4-12.4); Monocytes # 1.1 K/mcL (0.0-1.3); Neutrophils # 6.9 K/mcL (1.6-8.9); Platelet Count 294 K/mcL (140-400); Red Blood Count 3.41 M/mcL (3.82-4.97); Red Cell Distribution Width 13.6 % (11.5-14.5); Segmented Neutrophils % 64.4 %; White Blood Count 10.8 K/mcL (4.3-11.1)
[2021-03-05 05:37] LABS: BUN/Creatinine Ratio 35 (6-26); Blood Urea Nitrogen 19 mg/dL (8-23); Calcium 8.7 mg/dL (8.6-10.3); Carbon Dioxide 29 mEq/L (23-29); Chloride 108 mEq/L (98-107); Glucose 88 mg/dL (70-105); Osmolality,Calculated 296 (280-300); Phosphorous 2.8 mg/dL (2.7-4.5); Potassium 3.5 mEq/L (3.5-5.1); Sodium 142 mEq/L (136-145); eGFR For African Americans > 60 (> 60); eGFR For Non-African Americans > 60 (> 60)
[2021-03-05] MEDS: Piperacillin/Tazobactam 3.375 GM in 0.9 % Sodium Chloride Mini Bag 100 ML IVPB SCH ×3 (05:45→23:12)
[2021-03-05] MEDS: predniSONE 10 MG TABLET PO SCH (08:43)
[2021-03-05] MEDS: Aspirin 81 MG TAB.CHEW PO SCH (08:43)
[2021-03-05] MEDS: Tiotropium 10 INH DOSE IH SCH (11:03)
[2021-03-05] MEDS: Budesonide/Formoterol 160/4.5 1 PUFF INH IH SCH ×2 (11:04→22:36)
[2021-03-05 12:22] LABS: % Iron Saturation 19 % (15-50); Iron 63 mcg/dL (50-170); Transferrin 237 mg/dL (203-362)
[2021-03-05 12:40] LABS: Ferritin 45 ng/mL (10-120)
[2021-03-05 12:46] LABS: Folate 19.3 ng/mL (3.0-16.0)
[2021-03-05] MEDS ORDERED: Cyanocobalamin (B-12) 1,000 MCG/ML VIAL SQ ONE (14:43)
[2021-03-05] MEDS: Azithromycin 250 MG TABLET PO SCH (15:41)
[2021-03-05] MEDS: Ondansetron 4 MG/2 ML VIAL IVP PRN (15:41)
[2021-03-05] MEDS ORDERED: *HR* LORazepam 0.5 MG TABLET PO PRN (15:51)
[2021-03-05] MEDS ORDERED: Piperacillin/Tazobactam 3.375 GM VIAL ONE (22:56)
[2021-03-05] MEDS: *HR* Heparin 5,000 UNIT/ML VIAL SQ SCH (23:00)
[2021-03-06] MEDS: Levalbuterol Neb 0.63 MG/3 ML IH SCH (03:37)
[2021-03-06] MEDS: *HR* Heparin 5,000 UNIT/ML VIAL SQ SCH (05:11)
[2021-03-06] MEDS: Piperacillin/Tazobactam 3.375 GM in 0.9 % Sodium Chloride Mini Bag 100 ML IVPB SCH (05:12)
[2021-03-06 05:29] LABS: Basophils % 0.4 %; Eosinophils # 0.2 K/mcL (0.0-0.6); Eosinophils % 1.5 %; Hematocrit 33.8 % (35.3-44.9); Hemoglobin 10.6 g/dL (11.5-15.4); Immature Granulocytes % 1.2 % (0-4); Lymphocytes # 3.3 K/mcL (0.6-4.6); Lymphocytes % 31.1 %; Mean Corpuscular HGB Conc 31.4 g/dL (31.6-35.5); Mean Corpuscular Hemoglobin 30.9 pg (28.0-33.3); Mean Corpuscular Volume 98.5 fL (83.0-100.0); Mean Platelet Volume 8.4 fL (9.4-12.4); Monocytes # 0.9 K/mcL (0.0-1.3); Monocytes % 8.8 %; Platelet Count 309 K/mcL (140-400); Red Blood Count 3.43 M/mcL (3.82-4.97); Red Cell Distribution Width 13.3 % (11.5-14.5); White Blood Count 10.6 K/mcL (4.3-11.1)
[2021-03-06 05:50] LABS: BUN/Creatinine Ratio 37 (6-26); Blood Urea Nitrogen 19 mg/dL (8-23); Calcium 8.6 mg/dL (8.6-10.3); Carbon Dioxide 32 mEq/L (23-29); Chloride 104 mEq/L (98-107); Glucose 89 mg/dL (70-105); Osmolality,Calculated 296 (280-300); Potassium 3.3 mEq/L (3.5-5.1); Sodium 142 mEq/L (136-145); eGFR For African Americans > 60 (> 60); eGFR For Non-African Americans > 60 (> 60)
[2021-03-06 07:58] VITALS: BP 153/72
[2021-03-06] MEDS: Azithromycin 250 MG TABLET PO SCH (09:30)
[2021-03-06] MEDS: Aspirin 81 MG TAB.CHEW PO SCH (09:30)
[2021-03-06] MEDS: predniSONE 10 MG TABLET PO SCH (09:31)
== END 2021-03-06 10:57 | disposition home health service (06) | DRG 853 ==
LOC: EMEROOARM 12:03 → 3ANU 12:03 → SUATTDRO 16:23 → 3ANU 16:58 → SUATTDRO 03-03 13:15
PROVIDERS: ADMIT Internal Medicine; ATTEND Pharmacist